=== PATIENT | female | born 1935 | race Hispanic/Latino ===

== ENCOUNTER 2019-09-17 20:33 | Emergency (ER) | payer MEDICAID, MEDICARE ==
--- NOTE | 2019-09-17 22:05 | CT ---
CT head noncontrast HISTORY: Fall. Head injury. FINDINGS: There is no evidence of acute intracranial hemorrhage or infarct. Mild diffuse cortical atr ophy and chronic ischemic small vessel disease. There is no mass effect or shift of midline structures. Visualized paranasal sinuses remain well aera renita. IMPRESSION : No acute intracranial abnormalities are demonstrated.
--- NOTE | 2019-09-17 22:07 | CT ---
CT cervical spine noncontrast HISTORY: Fall. Neck injury. FINDINGS: Vertebral body heights are maintained. No acute fracture or dislocation evident. Multilevel disc space narrowing and osteophytosis. There is minimal degenerative retrolisthesis at the C4-5 level. Minimal degenerative spondylolisthesi s at the cervicothoracic junction. IMPRESSION : Degenerative changes cervical spine. No acute osseous abnormalities are demonstrated.
[2019-09-17] MEDS ORDERED: Acetaminophen 500 MG TAB ONE (22:16)
--- NOTE | 2019-09-17 22:19 | RAD ---
Right elbow 4 views HISTORY: Fall. Injury. FINDINGS: Radiocapitellar alignment is maintained. No acute fracture or dislocation are apparent. Teixeira ited flexion on the lateral view. No fluid distention of the joint capsule is evident. IMPRESSION : No acute osseous abnormalities are demonstrated.
--- NOTE | 2019-09-17 22:20 | RAD ---
Right forearm 2 views HISTORY: Injury. FINDINGS: Radius and ulna are intact. No acute fracture, dislocation, or radiopaque foreign bodies ar e apparent. IMPRESSION : No acute osseous abnormalities are demonstrated.
--- NOTE | 2019-09-17 22:20 | RAD ---
Right wrist 3 views HISTORY: Injury. FINDINGS: Scaphoid waist and ulnar styloid are intact. Very mild osteoarthritic changes. No acute fracture, dislocation, or aggressive osseous erosions. IMPRESSION : No acute osseous abnormalities are demonstrated.
[2019-09-17] MEDS ORDERED: Ibuprofen 800 MG TAB ONE (23:28)
== END 2019-09-17 23:55 | disposition home or self-care (01) ==
LOC: ERS 20:33
DX: S00.83XA Contusion of other part of head, initial encounter (principal); S50.11XA Contusion of right forearm, initial encounter; M54.5 Low back pain; I10 Essential (primary) hypertension; W18.30XA Fall on same level, unspecified, initial encounter
CPT/HCPCS: 70450; 72125